=== PATIENT | male | born 1950 | race Hispanic/Latino ===

== ENCOUNTER 2018-03-02 21:48 | Emergency (ER) | payer MEDICARE, OTHER ==
[2018-03-02 21:54] VITALS: BP 147/73; PULSE 90; RESP 16; TEMP 98.5; O2SAT 97
--- NOTE | 2018-03-02 23:32 | ED PDOC ---
Lower Extremity Pain/Injury Chief Complaint (Provider): LE redness and swelling x 2-3 months History Per: Patient History/Exam Limitations: no limitations Onset/Duration Of Symptoms: Days Additional Complaint(s): 67 yo male presents for evaluation of bilateral LE redness and swelling. Pt states it has been going on for 2-3 months. Pt states he was seen by his PCP and told he had type II DM but was not prescribed medications. Pt states he informed PCP of swelling and was sent for blood work which he did not completed yet. Pt sates he just wants medications of the swelling. Pt denies chest pain, SOB or calf pain. Pt states his friend was being seen in ER and that he was hoping the ER could prescribe something for his leg swelling. <Yesenia Christianson - Last Filed: 03/02/18 23:27> <Ryan Garvin - Last Filed: 03/04/18 04:42> Time Seen by Provider: 03/02/18 21:58 Chief Complaint (Nursing): Lower Extremity Problem/Injury Past Medical History Reviewed: Historical Data, Nursing Documentation, Vital Signs Vital Signs: Last Vital Signs Temp 98.5 F 03/02/18 21:52 Pulse 90 03/02/18 21:52 Resp 16 03/02/18 21:52 BP 147/73 03/02/18 21:52 Pulse Ox 97 03/02/18 21:52 - Medical History PMH: Diabetes - Surgical History Surgical History: No Surg Hx - Family History Family History: States: No Known Family Hx - Living Arrangements Living Arrangements: With Family - Social History Current smoker - smoking cessation education provided: No <Yesenia Christianson - Last Filed: 03/02/18 23:27> Vital Signs: Last Vital Signs Temp 98.5 F 03/02/18 21:52 Pulse 90 03/02/18 21:52 Resp 16 03/02/18 21:52 BP 147/73 03/02/18 21:52 Pulse Ox 97 03/02/18 23:34 <Ryan Garvin - Last Filed: 03/04/18 04:42> - Allergies Allergies/Adverse Reactions: Allergies Allergy/AdvReac Type Severity Reaction Status Date / Time Penicillins Allergy RASH Verified 03/02/18 21:52 Review of Systems ROS Statement: Except As Marked, All Systems Reviewed And Found Negative Constitutional: Negative for: Fever, Chills Musculoskeletal: Positive for: Other (Swelling, b/l LE) Skin: Positive for: Other <Yesenia Chirstianson - Last Filed: 03/02/18 23:27> Physical Exam - Reviewed Nursing Documentation Reviewed: Yes Vital Signs Reviewed: Yes - Physical Exam Appears: Positive for: Well, Non-toxic, No Acute Distress Head Exam: Positive for: ATRAUMATIC, NORMAL INSPECTION, NORMOCEPHALIC Skin: Positive for: Normal Color, Warm, DRY Eye Exam: Positive for: Normal appearance ENT: Positive for: Normal ENT Inspection Neck: Positive for: Normal, Painless ROM Cardiovascular/Chest: Positive for: Regular Rate, Rhythm Respiratory: Positive for: CNT, Normal Breath Sounds Pulses-Dorsalis Pedis (L): 1+ Pulses-Dorsalis Pedis (R): 1+ Back: Positive for: Normal Inspection Extremity: Positive for: Normal ROM, Swelling (Ankle and feet, B/L). Negative for: Tenderness, Calf Tenderness, Capillary Refill, Deformity Neurologic/Psych: Positive for: Alert, Oriented <Yesenia Christianson - Last Filed: 03/02/18 23:27> - ECG O2 Sat by Pulse Oximetry: 97 Pulse Ox Interpretation: Normal <Yesenia Christianson - Last Filed: 03/02/18 23:27> Medical Decision Making Medical Decision Making: Pt tells RN he does not want labs to be completed in ER. Pt leaves room. <Yesenia Christianson - Last Filed: 03/02/18 23:27> Disposition - Patient ED Disposition Is Patient to be Admitted: No - Disposition Disposition: Left W/O Treatment Disposition Time: 23:34 <Yesenia Christianson - Last Filed: 03/02/18 23:27> <Ryan Garvin - Last Filed: 03/04/18 04:42> - Clinical Impression Clinical Impression: Lower extremity edema - Disposition Condition: STABLE Forms: [facility] (Portuguese) - PA / OCCUPATIONAL ANALYST / Resident Statement MD/DO has reviewed & agrees with the documentation as recorded. <Ryan Garvin - Last Filed: 03/04/18 04:42>
== END 2018-03-02 23:34 | disposition left against medical advice (07) ==
LOC: H.ER 21:48
DX: R60.0 Localized edema (principal); E11.9 Type 2 diabetes mellitus without complications; Z88.0 Allergy status to penicillin